=== PATIENT | female | born 2000 | race Caucasian/White ===

== ENCOUNTER 2019-04-04 15:57 | Emergency (ER) | payer MEDICAID ==
[~2019-04-04] VITALS: Ht 162.6 cm; Wt 56.0 kg
[2019-04-04 16:03] VITALS: BP 125/75
--- NOTE | 2019-04-04 16:20 | NUR ---
Patient ambulated to bed 4. RN evaluating patient at bedside.
--- NOTE | 2019-04-04 16:21 | NUR ---
C/O LLQ PAIN X 3 DAYS. INTERMITENT SHARP NON-RADIATING PAIN AT 7/10. + NAUSEA, -VOMITING. DENIES DIARRHEA OR FEVER. ABDOMEN SOFT AND FLAT, BOWEL SOUNDS ACTIVE IN ALL 4 QUADRANTS. PT REPORTS SPOTTING, PT UNSURE IF , LMP 03/05/19. VSS. [id number]. BED IS DOWN, LOCKED, BED RAIL X 1, ERMD TO SEE PT MEDHX:ANEMIA RX:IRON
--- NOTE | 2019-04-04 16:40 | NUR ---
DR RUIZ AT BEDSIDE
--- NOTE | 2019-04-04 16:59 | NUR ---
US AT BEDSIDE
--- NOTE | 2019-04-04 17:04 | NUR ---
LAB AT BEDSIDE
[2019-04-04 17:14] LABS: BILIRUBIN,URINE NEGATIVE (NEGATIVE); BLOOD, URINE TRACE-L (NEGATIVE); COLOR,URINE YELLOW (YELLOW); LEUKOCYTE ESTERASE ,URINE 1+ (NEGATIVE); NITRITE, URINE NEGATIVE (NEGATIVE); PH,URINE 5.5 (5.0-9.0); UGLUCOSE NEGATIVE (NEGATIVE)
[2019-04-04 17:14] LABS: BASOPHILS # (AUTO) 0.1 K/uL (0.00-0.22); BASOPHILS % (AUTO) 0.8 % (0.0-2.0); EOSINOPHILS % (AUTO) 0.7 % (0.0-4.0); HEMOGLOBIN 11.7 g/dL (12.0-16.0); LYMPHOCYTES # (AUTO) 1.9 K/uL (2.5-16.5); LYMPHOCYTES % (AUTO) 28.3 % (20.5-51.1); MEAN CORPUSCULAR HEMOGLOBIN 27 pg (27-31); MEAN CORPUSCULAR HGB CONC 32 g/dL (33-37); MONOCYTES # (AUTO) 0.5 K/uL (0.8-1.0); MONOCYTES % (AUTO) 7.2 % (1.7-9.3); NEUTROPHILS # (AUTO) 4.2 K/uL (1.8-7.7); PLATELET COUNT (AUTO) 174 K/uL (140-450); RED BLOOD CELL COUNT(AUTO) 4.34 MIL/uL (4.20-5.40); RED CELL DISTRIBUTION WIDTH 14.1 % (11.6-13.7); WHITE BLOOD COUNT (AUTO) 6.6 K/uL (4.5-11.0)
[2019-04-04 17:21] LABS: APPEARANCE,URINE HAZY (CLEAR)
[2019-04-04 17:27] LABS: RBC,URINE 0-5 /HPF (0-5)
--- NOTE | 2019-04-04 17:28 | NUR ---
PT STATES SHE WILL WAIT IN LOBBY FOR RESULTS, DOES NOT WANT VITALS TO BE TAKEN AT THIS TIME. PATIENT STATES "MY CHILD IS CRYING IN THE LOBBY WITH FAMILY"
--- NOTE | 2019-04-04 18:19 | NUR ---
Patient REFUSED VITALS UPON DISCHARGE AND REQUESTED TO BE DISCHARGED IN ER LOBBY. Written and verbal after care instructions given and explained. Patient alert, oriented and verbalized understanding of instructions. PT GIVEN COPY OF LAB AND US RESULTS. Ambulatory with steady gait. All questions addressed prior to discharge. ID band removed. Patient advised to follow up with OBGYN. Rx of MACROBID CAPSULE AND ACETAMINOPHEN given. Patient educated on indication of medication including possible reaction and side effects. Opportunity to ask questions provided and answered.
== END 2019-04-04 18:19 | disposition home or self-care (01) ==
LOC: MED 15:57
DX: O20.0 Threatened abortion (principal); O23.41 Unspecified infection of urinary tract in pregnancy, first trimester; Z90.49 Acquired absence of other specified parts of digestive tract; Z3A.00 Weeks of gestation of pregnancy not specified; Z79.899 Other long term (current) drug therapy
CPT/HCPCS: 36415; 76817; 81001; 81025; 84702; 85025; 86900; 86901; 87086; 99284; Q0092

== ENCOUNTER 2019-05-16 22:19 | Emergency (ER) | payer MEDICAID ==
[~2019-05-16] VITALS: Ht 162.6 cm; Wt 54.4 kg
[2019-05-16 22:20] VITALS: BP 129/76
[2019-05-16 22:57] LABS: APPEARANCE,URINE SL CLOUDY (CLEAR); BILIRUBIN,URINE NEGATIVE (NEGATIVE); BLOOD, URINE NEGATIVE (NEGATIVE); COLOR,URINE YELLOW (YELLOW); LEUKOCYTE ESTERASE ,URINE NEGATIVE (NEGATIVE); NITRITE, URINE NEGATIVE (NEGATIVE); PH,URINE 6.5 (5.0-9.0); UGLUCOSE NEGATIVE (NEGATIVE)
[2019-05-16] MEDS ORDERED: KETOROLAC 30 MG/ML VIAL IM ONE (23:50)
[2019-05-17] MEDS ORDERED: KETOROLAC 15 MG/ML VIAL ONE (00:02)
[2019-05-17 01:30] VITALS: BP 105/59
== END 2019-05-17 01:29 | disposition home or self-care (01) ==
LOC: MED 22:19
DX: N76.0 Acute vaginitis (principal); Z88.8 Allergy status to other drugs, medicaments and biological substances; Z90.89 Acquired absence of other organs
CPT/HCPCS: 36415; 81003; 81025; 84702; 87210; 99283; J1885

== ENCOUNTER 2019-11-17 01:24 | Emergency (ER) | payer MEDICAID, OTHER ==
[~2019-11-17] VITALS: Ht 162.6 cm; Wt 49.9 kg
[2019-11-17 01:28] VITALS: BP 113/77
[2019-11-17] MEDS: SULFAMETH/TRIMETH DS 800/160MG 1 TAB PO ONE (01:52)
[2019-11-17] MEDS: PHENAZOPYRIDINE 100 MG TAB PO ONE (01:52)
[2019-11-17 02:08] VITALS: BP 113/77
== END 2019-11-17 02:08 | disposition home or self-care (01) ==
LOC: MED 01:24
DX: N39.0 Urinary tract infection, site not specified (principal); Z88.0 Allergy status to penicillin
CPT/HCPCS: 81002; 81025; 99283

== ENCOUNTER 2020-03-26 19:49 | Emergency (ER) | payer OTHER ==
[~2020-03-26] VITALS: Ht 154.9 cm; Wt 59.0 kg
[2020-03-26 20:01] VITALS: BP 126/73
[2020-03-26] MEDS ORDERED: KETOROLAC 60 MG/2 ML VIAL IM ONE (20:40)
--- NOTE | 2020-03-26 21:24 | NUR ---
Patient discharged with v/s stable. Written and verbal after care instructions given and explained. Patient alert, oriented and verbalized understanding of instructions. Ambulatory with steady gait. All questions addressed prior to discharge. ID band removed. Patient advised to follow up with PMD. Rx of zofran, cipro, norco, motrin given. Patient educated on indication of medication including possible reaction and side effects. Opportunity to ask questions provided and answered.
== END 2020-03-26 21:24 | disposition home or self-care (01) ==
LOC: MED 19:49
DX: N39.0 Urinary tract infection, site not specified (principal); Z88.8 Allergy status to other drugs, medicaments and biological substances; Z90.49 Acquired absence of other specified parts of digestive tract
CPT/HCPCS: 81002; 81025; 96372; 99283; J1885

== ENCOUNTER 2020-05-11 21:10 | Emergency (ER) | payer OTHER ==
[~2020-05-11] VITALS: Ht 162.6 cm; Wt 56.7 kg
[2020-05-11 21:23] VITALS: BP 107/70
[2020-05-11 22:20] LABS: BASOPHILS % (AUTO) 0.4 % (0.0-2.0); EOSINOPHILS % (AUTO) 0.4 % (0.0-4.0); HEMATOCRIT 34.6 % (36-48); HEMOGLOBIN 11.4 g/dL (12.0-16.0); LYMPHOCYTES # (AUTO) 1.3 K/uL (2.5-16.5); LYMPHOCYTES % (AUTO) 13.8 % (20.5-51.1); MEAN CORPUSCULAR HEMOGLOBIN 27 pg (27-31); MEAN CORPUSCULAR HGB CONC 33 g/dL (33-37); MONOCYTES # (AUTO) 0.4 K/uL (0.8-1.0); MONOCYTES % (AUTO) 4.4 % (1.7-9.3); NEUTROPHILS # (AUTO) 7.4 K/uL (1.8-7.7); PLATELET COUNT (AUTO) 139 K/uL (140-450); RED BLOOD CELL COUNT(AUTO) 4.22 MIL/uL (4.20-5.40); RED CELL DISTRIBUTION WIDTH 16.4 % (11.6-13.7); WHITE BLOOD COUNT (AUTO) 9.2 K/uL (4.5-11.0)
[2020-05-11 22:23] LABS: APPEARANCE,URINE HAZY (CLEAR); BILIRUBIN,URINE NEGATIVE (NEGATIVE); BLOOD, URINE TRACE-I (NEGATIVE); COLOR,URINE YELLOW (YELLOW); LEUKOCYTE ESTERASE ,URINE NEGATIVE (NEGATIVE); NITRITE, URINE NEGATIVE (NEGATIVE); UGLUCOSE NEGATIVE (NEGATIVE)
[2020-05-11 22:35] LABS: RBC,URINE 0-5 /HPF (0-5); WBC,URINE 0-5 /HPF (0-5)
[2020-05-11 22:40] LABS: ALBUMIN 3.6 g/dL (3.4-5.0); ANION GAP 12.5 (8-16); CREATININE 0.4 mg/dL (0.6-1.3); POTASSIUM 3.5 mmol/L (3.5-5.1); TOTAL BILIRUBIN 0.3 mg/dL (0.0-1.0)
[2020-05-11 23:53] VITALS: BP 107/70
== END 2020-05-11 23:53 | disposition home or self-care (01) ==
LOC: MED 21:10
DX: O20.8 Other hemorrhage in early pregnancy (principal); O21.9 Vomiting of pregnancy, unspecified; Z88.8 Allergy status to other drugs, medicaments and biological substances
CPT/HCPCS: 36415; 76817; 80053; 81001; 81025; 84702; 85025; 87086; 99284; Q0092

== ENCOUNTER 2021-07-20 11:35 | Emergency (ER) | payer MEDICAID, OTHER ==
[~2021-07-20] VITALS: Ht 162.6 cm; Wt 63.0 kg
[2021-07-20 11:47] VITALS: BP 103/68
--- NOTE | 2021-07-20 12:48 | NUR ---
PT AMBULATED TO ER BED 1
[2021-07-20] MEDS ORDERED: POLY10SO OP (12:59)
[2021-07-20] MEDS ORDERED: CEPH-588 PO (12:59)
--- NOTE | 2021-07-20 13:03 | NUR ---
21 YEARS OLD FEMALE PRESENTS TO ER WITH LEFT EYELID SWELLING/REDNESS.
[2021-07-20 13:09] VITALS: BP 110/70
== END 2021-07-20 13:09 | disposition home or self-care (01) ==
LOC: MED 11:35
DX: O26.892 Other specified pregnancy related conditions, second trimester (principal); L03.213 Periorbital cellulitis; H10.9 Unspecified conjunctivitis; Z3A.22 22 weeks gestation of pregnancy; Z88.8 Allergy status to other drugs, medicaments and biological substances; Z79.899 Other long term (current) drug therapy
CPT/HCPCS: 99281

== ENCOUNTER 2022-09-18 22:32 | Emergency (ER) | payer MEDICAID ==
[~2022-09-18] VITALS: Ht 162.6 cm; Wt 61.2 kg
[~2022-09-18 22:32] MED LIST: CEPH-588 PO; POLY10SO OP
[2022-09-18 22:40] VITALS: BP 113/63
--- NOTE | 2022-09-18 22:40 | NUR ---
to bed ambulatory
--- NOTE | 2022-09-18 23:02 | NUR ---
22YR OLD FEMALE BIB SELF C/O R LOWER BACK PAIN. PT STATES SHE WAS PUTTING DAUGHTER IN CAR SEAT WHEN PAIN STARTED. DENIES KNOWN INJURY. DENIES FEVER N/V. PT A&OX4 PT LAYING FLAT ON BED. FLUOXETINE SERTRALINE NO MED HX
--- NOTE | 2022-09-18 23:15 | NUR ---
ER AT BEDSIDE
[2022-09-18] MEDS ORDERED: ACETAMINOPHEN 325 MG TAB PO ONE (23:20)
[2022-09-18] MEDS ORDERED: CYCLOBENZAPRINE 10 MG TAB PO ONE (23:20)
[2022-09-18] MEDS ORDERED: IBUPROFEN 600 MG TAB PO ONE (23:20)
[2022-09-18] MEDS ORDERED: LID5T TP (23:30)
[2022-09-18] MEDS ORDERED: CYCL-711 PO (23:30)
[2022-09-18] MEDS ORDERED: ACET-9882 PO (23:30)
[2022-09-18] MEDS ORDERED: IBUP-2218 PO (23:30)
--- NOTE | 2022-09-18 23:35 | NUR ---
Patient discharged with v/s stable. Written and verbal after care instructions given and explained. Patient verbalized understanding. Ambulatory with steady gait. All questions addressed prior to discharge. Advised to follow up with PMD.
== END 2022-09-18 23:35 | disposition home or self-care (01) ==
LOC: MED 22:32
DX: S33.5XXA Sprain of ligaments of lumbar spine, initial encounter (principal); Z90.49 Acquired absence of other specified parts of digestive tract; Z79.899 Other long term (current) drug therapy; Z79.1 Long term (current) use of non-steroidal anti-inflammatories (NSAID); Z79.2 Long term (current) use of antibiotics; Z88.8 Allergy status to other drugs, medicaments and biological substances; X58.XXXA Exposure to other specified factors, initial encounter; Y92.89 Other specified places as the place of occurrence of the external cause; Y93.89 Activity, other specified; Y99.8 Other external cause status
CPT/HCPCS: 99284

== ENCOUNTER 2022-11-14 13:27 | Emergency (ER) | payer MEDICAID ==
[~2022-11-14] VITALS: Ht 162.6 cm; Wt 63.5 kg
[~2022-11-14 13:27] MED LIST changes: +ACET-9882 PO; +CYCL-711 PO; +IBUP-2218 PO; +LID5T TP
[2022-11-14 13:43] VITALS: BP 114/61
--- NOTE | 2022-11-14 14:32 | NUR ---
DR HEBERT AT BEDSIDE.
[2022-11-14] MEDS ORDERED: POLY10SO OP (14:39)
--- NOTE | 2022-11-14 15:25 | NUR ---
Patient discharged with v/s stable. Written and verbal after care instructions given and explained. Patient alert, oriented and verbalized understanding of instructions. Ambulatory with steady gait. All questions addressed prior to discharge. ID band removed. Patient advised to follow up with PMD. Rx of POLYMYXIN B (SENT) given. Patient educated on indication of medication including possible reaction and side effects. Opportunity to ask questions provided and answered.
--- NOTE | 2022-11-14 15:25 | NUR ---
The patient's care was reviewed and supervised by Shannon Valenzuela, RN, RN.
--- NOTE | 2022-11-14 15:26 | NUR ---
The patient's care was reviewed and supervised by ED Agency Nurse 8, RN, RN.
== END 2022-11-14 15:25 | disposition home or self-care (01) ==
LOC: MED 13:27
DX: B34.9 Viral infection, unspecified (principal); H10.9 Unspecified conjunctivitis; H92.03 Otalgia, bilateral; Z88.8 Allergy status to other drugs, medicaments and biological substances; Z79.899 Other long term (current) drug therapy
CPT/HCPCS: 99283

== ENCOUNTER 2023-04-30 17:22 | Emergency (ER) | payer MEDICAID ==
[~2023-04-30] VITALS: Ht 165.1 cm; Wt 67.1 kg
[2023-04-30 17:59] VITALS: BP 122/76; PULSE 89; RESP 18; TEMP 98; O2SAT 98
[2023-04-30] MEDS ORDERED: ACETAMINOPHEN EXTRA STRENGTH 500 MG TAB PO ONE (19:45)
[2023-04-30 20:31] LABS: BASOPHILS # (AUTO) 0.1 K/uL (0.00-0.22); BASOPHILS % (AUTO) 1.8 % (0.0-2.0); EOSINOPHILS # (AUTO) 0.1 K/uL (0-0.4); HEMOGLOBIN 11.1 g/dL (12.0-16.0); LYMPHOCYTES # (AUTO) 2.7 K/uL (2.5-16.5); LYMPHOCYTES % (AUTO) 39.9 % (20.5-51.1); MEAN CORPUSCULAR HEMOGLOBIN 26 pg (27-31); MEAN CORPUSCULAR HGB CONC 33 g/dL (33-37); MONOCYTES # (AUTO) 0.4 K/uL (0.8-1.0); NEUTROPHILS # (AUTO) 3.5 K/uL (1.8-7.7); NEUTROPHILS % (AUTO) 50.3 % (42.2-75.2); PLATELET COUNT (AUTO) 218 K/uL (140-450); RED BLOOD CELL COUNT(AUTO) 4.24 MIL/uL (4.20-5.40); RED CELL DISTRIBUTION WIDTH 14.7 % (11.6-13.7); WHITE BLOOD COUNT (AUTO) 6.9 K/uL (4.8-10.8)
[2023-04-30 20:47] LABS: ALBUMIN 4.1 g/dL (3.4-5.0); ANION GAP 16.2 (8-16); CALCIUM 9.1 mg/dL (8.5-10.1); CARBON DIOXIDE 21.7 mmol/L (21-32); CREATININE 0.7 mg/dL (0.6-1.3); POTASSIUM 3.9 mmol/L (3.5-5.1); TOTAL BILIRUBIN 0.2 mg/dL (0.0-1.0); TOTAL PROTEIN, SERUM 8.1 g/dL (6.4-8.2)
[2023-04-30 20:49] LABS: APPEARANCE,URINE CLEAR (CLEAR); BILIRUBIN,URINE NEGATIVE (NEGATIVE); BLOOD, URINE 3+ (NEGATIVE); COLOR,URINE YELLOW (YELLOW); LEUKOCYTE ESTERASE ,URINE NEGATIVE (NEGATIVE); NITRITE, URINE NEGATIVE (NEGATIVE); PROTEIN,URINE NEGATIVE (NEGATIVE); UGLUCOSE NEGATIVE (NEGATIVE); UROBILINOGEN,URINE 0.2 EU/dL (0.2 - 1)
[2023-04-30 20:57] LABS: BACTERIA,URINE 1+ /HPF (None Seen); MUCUS,URINE 1+ /LPF (None Seen); RBC,URINE 20-50 /HPF (0-5); SQUAMOUS EPITHELIAL CELL,UR 20-50 /LPF (0-3 (FEW)); TRICHOMONAS,URINE None Seen /HPF (None Seen); WBC,URINE 0-5 /HPF (0-5); YEAST,URINE None Seen /HPF (None Seen)
[2023-04-30] MEDS ORDERED: ACET-10509 PO (22:34)
[2023-04-30 23:00] VITALS: BP 122/76; PULSE 89; RESP 18; TEMP 98; O2SAT 98
== END 2023-04-30 23:00 | disposition home or self-care (01) ==
LOC: MED 17:22
DX: O20.8 Other hemorrhage in early pregnancy (principal); Z3A.08 8 weeks gestation of pregnancy; Z79.899 Other long term (current) drug therapy; Z88.1 Allergy status to other antibiotic agents; Z88.8 Allergy status to other drugs, medicaments and biological substances
CPT/HCPCS: 36415; 76801; 80053; 81001; 81025; 84702; 85025; 86886; 86900; 86901; 99284